=== PATIENT | female | born 1965 | race Caucasian/White ===

== ENCOUNTER 2020-06-24 12:34 | Emergency (ER) | payer OTHER ==
[~2020-06-24] VITALS: Ht 172.7 cm; Wt 56.0 kg
[2020-06-24] MEDS ORDERED: MULTIVIT INFUSN,ADULT 4,VIT K 10 ML, THIAMINE INJ 100 MG, FOLIC ACID INJ 1 MG in IV NOR... IV ONE (13:00)
--- NOTE | 2020-06-24 13:26 | PHYS DOC ---
Past Medical History Past Medical History: Anxiety, Depression, GERD Additional Past Medical Histor: Graves, PTSD, Sjogrens Past Surgical History: Tonsillectomy, Tubal ligation Smoking Status: Unknown if ever smoked Alcohol Use: Heavy Drug Use: None General Adult EDM: Chief Complaint: ALCOHOL INTOXICATION HPI: HPI: 54 year old patient was transported to ER via EMS with chief complaint of alcohol intoxication. 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 Patient denies taking any other co-ingestiants. During the initial interview, she asked if we "can kill me [patient]" Patient admits drinking 4 wine per day. If deprived from alcohol or not drinking enough, she will experience shaking. Denies history of Dt's. Patient admits have been to the hospital 7 times this year. History of present illness limited as patient tearful with any questioning. Review of Systems: Review of Systems: Constitutional: Denies fever or chills Eyes: Denies redness or eye pain HENT: Denies nasal congestion or sore throat Respiratory: Denies cough or shortness of breath Cardiovascular: Denies chest pain or palpitations GI: Denies abdominal pain, nausea, or vomiting Musculoskeletal: Denies back pain or joint pain Integument: Denies rash or skin lesions Neurologic: Denies headache, sensory changes, reports weakness at home, using walker at home Limited review of system due to intoxication, intense crying when being asked additional questions Family History: Family History: Limited H&P due to intoxication, unable / unwilling to answer question intense crying when being asked additional questions Will attempt to recollect HNP once patient condition improves Current Medications: Current Medications Medications (Trade) Dose Ordered Sig/Kike Start Time Stop Time Status Last Admin Dose Admin Multivitamins 10 ml/Thiamine HCl 100 mg/Folic Acid 1 mg/Sodium Chloride 1,011.2 ml @ 1,000.088 mls/hr 1X ONCE 06/24/20 13:00 06/24/20 14:00 UNV Allergies: Allergies: Allergies Coded Allergies Type Severity Reaction Last Updated Verified No Known Drug Allergies 06/24/20 No Physical Exam: PE: Constitutional: Nontoxic, curled up in bed, covered in a blanket, tearful HENT: Normocephalic, atraumatic Eyes: Conjunctiva normal, no discharge Neck: Normal range of motion, no tenderness, supple Lungs & Thorax: No respiratory distress, equal chest rise and fall Abdomen: Soft, no tenderness Skin: Warm, dry, no erythema, no rash Neurologic: normal sensory function, no focal deficits noted Psychologic: Extremely upset, she said " I am alone", will cry if being asked additional questions EKG: EKG: At 2:14 PM, heart rate 90, VT 166 ms, QRS 76 ms, QT/QTc 370/462 ms, normal axis, sinus rhythm, no STEMI noticed Radiology/Procedures: Radiology/Procedures: [] Course & Med Decision Making: Course & Med Decision Making Pertinent Lab studies reviewed. (See chart for details) Patient presents with HPI and physical exam consistent for chronic alcohol abuse. Denies history of DTs. There is concern for suicidal ideation. Labs obtained and posted to chart. Patient deemed medically stable for psychiatric evaluation. PAT consult performed. PAT real estate consultant evaluated patient and recommends treatment at [facility]. Patient stable for discharge from ER with outpatient follow-up with [facility] for her alcohol addiction.. Discussed findings and plan with patient, who acknowledges understanding and agreement. Maty Disclaimer: Maty Disclaimer: This electronic medical record was generated, in whole or in part, using a voice recognition dictation system. Departure Departure Impression: Primary Impression: Alcohol abuse Disposition: 01 DC HOME SELF CARE/HOMELESS Condition: STABLE Referrals: MIRLANDE SEBASTIAN (PCP) Patient Instructions: Alcohol and Drug Addiction, Finding Treatment, Alcohol, FAQs, How Much is Too Much Alcohol, [id number] Additional Instructions: Please follow directly with I for further evaluation and treatment of your alcohol addiction DONA DILLON DO Jun 24, 2020 13:26
[2020-06-24 14:15] LABS: BASO # 0.1 x10^3/uL (0.0-0.2); BASO % 1 % (0-3); EOS % 0 % (0-3); HEMOGLOBIN 12.8 g/dL (12.0-15.5); LYMPH # 2.2 x10^3/uL (1.0-4.8); LYMPH % 31 % (24-48); MEAN CORPUSCULAR HEMOGLOBIN 32 pg (25-35); MEAN CORPUSCULAR HGB CONC 33 g/dL (31-37); MEAN CORPUSCULAR VOLUME 98 fL (79-100); MONO # 0.3 x10^3/uL (0.0-1.1); MONO % 4 % (0-9); NEUT # 4.5 x10^3/uL (1.8-7.7); NEUT % 64 % (31-73); PLATELET COUNT 652 x10^3/uL (140-400); RED BLOOD COUNT 3.99 x10^6/uL (3.50-5.40); RED CELL DISTRIBUTION WIDTH 16.3 % (11.5-14.5)
[2020-06-24] MEDS ORDERED: ONDANSETRON PF 4 MG/2 ML VIAL. IVP ONE (15:45)
[2020-06-24 16:14] LABS: CALCIUM 8.5 mg/dL (8.5-10.1); CREATININE 0.6 mg/dL (0.6-1.0); GFR 103.8; POTASSIUM 3.4 mmol/L (3.5-5.1)
[2020-06-24 16:20] LABS: ALBUMIN 3.1 g/dL (3.4-5.0); ALBUMIN/GLOBULIN RATIO 0.8 (1.0-1.7); TOTAL BILIRUBIN 0.4 mg/dL (0.2-1.0); TOTAL PROTEIN 6.8 g/dL (6.4-8.2)
--- NOTE | 2020-06-24 16:21 | EKG ---
[facility] [address] [place] [address] Test Date: 2020-06-24 Test Time: 14:09:28 Pat Name: JENNI BROOKS Department: Room: Gender: F Scheme Technician: : [id number] Requested By: DONA DILLON Order Number: [id number] Reading MD: Measurements Intervals [place] Rate: 90 P: 65 [place]: 166 QRS: 60 QRSD: 76 T: 51 QT: 374 QTc: 462 Interpretive Statements SINUS RHYTHM NO SPECIFIC ECG ABNORMALITIES RI6.02 No previous ECG available for comparison
[2020-06-24 16:26] LABS: ACETAMIN < 2 mcg/ml (10-30); ETHANOL < 10 mg/dL (0-10); SALIC < 2.8 mg/dL (2.8-20.0)
[2020-06-24 16:28] LABS: CREATINE KINASE 44 U/L (26-192)
[2020-06-24] MEDS ORDERED: POTASSIUM CHLORIDE 20 MEQ TABLET.ER. PO ONE (16:45)
[2020-06-24 17:18] LABS: BILIRUBIN,URINE NEGATIVE (NEG); CLARITY,URINE CLEAR; COLOR,URINE YELLOW; NITRITE,URINE NEGATIVE (NEG); PH,URINE 5.5 (<5.0-8.0); PROTEIN,URINE NEGATIVE (NEG-TRACE)
[2020-06-24 17:25] LABS: HYALINE CASTS, URINE MODERATE /HPF
[2020-06-24 17:26] LABS: BACTERIA,URINE MODERATE /HPF (0-FEW)
[2020-06-24 17:28] LABS: RBC,URINE 0 /HPF (0-2)
[2020-06-24 17:40] LABS: AMPHETAMINE/METHAMPHETAMINE NEG (NEG); BARBITURATES NEG (NEG); BENZODIAZEPINES NEG (NEG); CANNABINOIDS NEG (NEG); COCAINE NEG (NEG); METHADONE NEG (NEG); OPIATES NEG (NEG); PHENCYCLIDINE NEG (NEG)
[2020-06-24 19:30] VITALS: BP 136/79
== END 2020-06-24 19:30 | disposition home or self-care (01) ==
LOC: ER 12:34
DX: F10.229 Alcohol dependence with intoxication, unspecified (principal); Y90.0 Blood alcohol level of less than 20 mg/100 ml; F41.9 Anxiety disorder, unspecified; F32.9 Major depressive disorder, single episode, unspecified; K21.9 Gastro-esophageal reflux disease without esophagitis; F43.10 Post-traumatic stress disorder, unspecified
CPT/HCPCS: 36415; 80053; 80307; 80329; 81001; 82553; 83735; 84484; 85025; 87086; 93005; 96365; 96375; 99285; G0480; J2060; J2405; J3411; J3490; J7030